=== PATIENT | male | born 1940 | race Caucasian/White ===

== ENCOUNTER 2016-10-14 15:17 | Emergency (ER) | payer MEDICARE, OTHER ==
[~2016-10-14 15:17] MED LIST: ADULT LOW DOSE81 M1 PO; ALLOPURINOL300 M1 PO; ALLOPURINOL300 MG PO; AZITHROMYCIN250 M1 PO; BACTRIM DS1 TAB PO; BENAZEPRIL HCL PO; BENAZEPRIL HCL10 M2 PO; BENAZEPRIL HCL5 M2 PO; BENAZEPRIL HCL5 MG PO; CIPRO500 M2 PO; CIPRO500 MG PO; CIPROFLOXACIN500 M3 PO; CIPROFLOXACIN750 M1 PO; CLONAZEPAM1 M2 PO; CLOTRIMAZOLE10 M1 MM; COLACE PO; COLACE100 M1 PO; CRANBERRY300 M1 PO; CYMBALTA30 M1 PO; DIFLUCAN150 M1 PO; DOXYCYCLINE HY100 M3; DOXYCYCLINE HY100 M3 PO; DURAGESIC1 EAC5 TOP; EQL FISH OIL 1,1 CA1 PO; FERROUS SULFAT325 MG PO; FINASTERIDE5 M1 PO; FINASTERIDE5 M2 PO; FISH OIL 1,2001 EAC4 PO; FISH OIL 11000 MG/CA PO; FLOMAX0.4 M1 PO; GABAPENTIN100 M1 PO; GLUCOSAMINE CH1 EACH PO; HTN MED PO; HYDROCODON-ACE1 EA16 PO; HYDROCODONE/APAP PO; JANUMET; JANUMET 50-5001 EACH PO; JANUMET 50-501 UDTAB PO; K-DUR20 ME1 PO; KLONOPIN1 M1 PO; LAMOTRIGINE25 M3 PO; LEVAQUIN500 M1 PO; LIPITOR10 M1 PO; LIPITOR10 MG PO; LISINOPRIL-HCT1 EAC2 PO; LYRICA PO; LYRICA75 MG PO; MACROBID100 MG/CA1 PO; MACROBID100 MG/CAP PO; MELATONIN5 M1 PO; MELATONIN5 M5 PO; METFORMIN HCL500 M2 PO; METFORMIN HCL500 M4 PO; METOPROLOL SUC100 M1 PO; METOPROLOL TART25 M1 PO; METOPROLOL TART50 MG PO; MIRALAX17 G2 PO; MUCINEX1200 MG PO; MULTIVITAMIN; MULTIVITAMIN1 TAB PO; MULTIVITAMINS1 EAC6 PO; MYRBETRIQ50 M1 PO; NEURONTIN100 M1 PO; NORCO 5-325 TA1 EACH PO; NORCO PO; NORVASC5 M2 PO; OXYBUTYNIN CHLOR5 M2 PO; PERCOCET 5-3251 EACH PO; POTASSIUM CHLO10 ME1 PO; POTASSIUM CHLO10 ME2 PO; POTASSIUM CITRA5 ME1 PO; POTASSIUM CITRATE PO; RAPAFLO4 M1 PO; ROCEPHIN IM; SENNA-DOCUSATE1 EAC1 PO; SERTRALINE HCL50 M4 PO; STOOL SOFTNER; SULFAMETHOXAZOLE1 EA PO; TAMSULOSIN HCL0.4 MG PO; TOLTERODINE TART4 MG PO; TOPROL XL100 MG PO; TRAMADOL HCL50 M2 PO; ULTRAM50 M1 PO; URIBEL CAPSULE1 EACH PO; VITAMIN D10000 UNI1 PO; VITAMIN D250000 UNI1 PO; ZOLOFT50 M1 PO; [UNRECOGNIZED DRUG - OTHER] IM
[2016-10-14] MEDS ORDERED: KLONOPIN0.5 M1 PO (15:38)
[2016-10-14] MEDS ORDERED: MACROBID 100 M100 M1 PO (15:38)
[2016-10-14 15:57] LABS: URINE LEUKOCYTE ESTERASE POSITIVE (NEG); URINE PH 6.5 (5.0-8.0); URINE PROTEIN MODERATE (NEG); URINE SPECIFIC GRAVITY 1.015 (1.003-1.030)
[2016-10-14 15:58] LABS: URINE APPEARANCE CLEAR; URINE BILIRUBIN NEGATIVE (NEG); URINE BLOOD NEGATIVE (NEG); URINE COLOR YELLOW; URINE GLUCOSE (UA) MODERATE (NEG); URINE KETONE SMALL (NEG); URINE NITRITE NEGATIVE (NEG)
[2016-10-14 16:08] LABS: URINE RBC 0 /[HPF] (0-5); URINE WBC 80-100 /[HPF] (0-5)
[2016-10-14 16:09] LABS: URINE BACTERIA 1+
[2016-10-14] MEDS ORDERED: MILK OF MAGNESIA PO (16:17)
[2016-10-14 16:23] LABS: BASO % 0.3 % (0-2); EOS % 2.1 % (0-7); EOSINOPHIL ABSOLUTE COUNT 0.1 tho/cmm (0.0-0.7); HCT-HEMATOCRIT 43.9 % (36.0-53.5); HGB-HEMOGLOBIN 15.2 gm/dl (13.5-17.0); IMMATURE GRANULOCYTES ABSOLUTE 0.01 tho/cmm (0-0.03); IMMATURE GRANULOCYTES PERCENT 0.1 % (0-0.3); LYMPH % 18.3 % (20-45); LYMPH ABSOLUTE COUNT 1.2 tho/cmm (0.8-4.5); MCH (MEAN CORPUSCULAR HGB) 32.1 pg (28.0-32.0); MCHC MEAN CORPUSCULAR HGB CONC 34.6 % (32.0-36.0); MCV (MEAN CELL VOLUME) 92.6 fl (82.0-96.0); MEAN PLATELET VOLUME 9.4 cmc (9.4-12.4); MONO % 15.5 % (0-12); MONOCYTE ABSOLUTE COUNT 1.1 tho/cmm (0.0-1.2); NEUTROPHIL ABSOLUTE COUNT 4.3 tho/cmm (1.6-8.0); NEUTROPHIL-AUTOMATED 4.3 tho/cmm (1.6-8.0); NEUTROPHILS % 63.7 % (40-80); PLATELET COUNT 200 tho/cmm (150-450); RED BLOOD COUNT 4.74 mil/cmm (4.40-5.70); RED CELL DISTRIBUTION WIDTH 14.4 % (12.4-16.4); WHITE BLOOD COUNT 6.8 tho/cmm (4.0-10.0)
[2016-10-14 16:41] LABS: ANION GAP 15 mmol/L (0-20); BLOOD UREA NITROGEN 17 mg/dl (6-24); CALCIUM 10.3 mg/dl (8.5-10.5); CARBON DIOXIDE-VENOUS 23 mmol/L (22-32); CHLORIDE 106 mmol/l (96-110); CREATININE 0.96 mg/dl (0.60-1.30); GLUCOSE 118 mg/dL (70-110); POTASSIUM 4.2 mmol/L (3.7-5.1); SODIUM 140 mmol/L (135-145); eGFR VALUE FOR BLACK 89 mL/Min
== END 2016-10-14 17:37 ==
LOC: EDMED 15:17
PROVIDERS: Emergency Medicine
DX: S09.90XA Unspecified injury of head, initial encounter (principal); N39.0 Urinary tract infection, site not specified; R53.1 Weakness; I25.10 Atherosclerotic heart disease of native coronary artery without angina pectoris; I10 Essential (primary) hypertension; E78.5 Hyperlipidemia, unspecified; Z95.1 Presence of aortocoronary bypass graft; Z79.899 Other long term (current) drug therapy; W18.09XA Striking against other object with subsequent fall, initial encounter; Y92.010 Kitchen of single-family (private) house as the place of occurrence of the external cause
CPT/HCPCS: J7030